=== PATIENT | male | born 1975 | race Two or more races ===

== ENCOUNTER 2018-04-21 19:05 | Emergency (ER) | payer SELFPAY ==
[~2018-04-21] VITALS: Ht 175.3 cm; Wt 95.3 kg
--- NOTE | 2018-04-21 19:05 | NUR ---
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 A/OX4 ABLE TO MAKE NEEDS KNOWN WITH FAMILY AT BEDSIDE. WILL CONTINUE TO MONITOR FOR ANY CHANGES DURING THE SHIFT.
[2018-04-21] MEDS ORDERED: LABETALOL HCL IV 100MG VIAL ONE (20:14)
[2018-04-21 20:24] LABS: BASOPHILS # (AUTO) 0.1 /CMM (0.0-0.2); BASOPHILS % (AUTO) 0.5 % (0.0-2.0); EOSINOPHILS % (AUTO) 1.5 % (0.0-6.0); HEMATOCRIT 42 % (39-51); HEMOGLOBIN 14.3 g/dL (13.5-17.5); LYMPHOCYTES # (AUTO) 3.5 /CMM (0.8-4.8); LYMPHOCYTES % (AUTO) 29.9 % (20.0-44.0); MEAN CORPUSCULAR HEMOGLOBIN 28 PG (26.0-33.0); MEAN CORPUSCULAR HGB CONC 34 g/dl (31.0-36.0); MEAN CORPUSCULAR VOLUME 82 fL (80-96); MONOCYTES # (AUTO) 0.8 /CMM (0.1-1.30); NEUTROPHILS % (AUTO) 61.1 % (43.0-81.0); PLATELET COUNT (AUTO) 272 /CMM (150-450); RDW COEFFICIENT OF VARIATION 13.1 (11.5-15.0); RED BLOOD CELL COUNT(AUTO) 5.17 MIL/uL (4.5-6.0); WHITE BLOOD COUNT (AUTO) 11.6 K/uL (4.3-11.0)
[2018-04-21] MEDS ORDERED: LABETALOL HCL IV 100MG VIAL IV ONE ×2 (20:30→21:30)
[2018-04-21 20:35] LABS: CALCIUM, SERUM 9.5 mg/dL (8.5-10.1); CARBON DIOXIDE 26 mmol/L (21-32); CHLORIDE 101 mmol/L (98-107); GLUCOSE 236 mg/dL (74-106); SODIUM SERUM 135 mmol/L (136-145); UREA NITROGEN, BLOOD 14 mg/dL (7-18)
[2018-04-21 20:39] LABS: INR 0.98 (0.85-1.15)
[2018-04-21 20:43] LABS: TROPONIN I < 0.017 ng/mL (0.00-0.056)
[2018-04-21] MEDS ORDERED: LISINOPRIL (10MG) 10 MG TABLET PO SCH (21:30)
[2018-04-21 21:37] VITALS: BP 168/100
== END 2018-04-21 21:38 | disposition home or self-care (01) ==
LOC: ER 19:08
DX: I10 Essential (primary) hypertension (principal); R04.2 Hemoptysis; E11.9 Type 2 diabetes mellitus without complications; F17.200 Nicotine dependence, unspecified, uncomplicated
CPT/HCPCS: 36415; 71045-TC; 80048-TC; 84484-TC; 85025-TC; 85730-TC; A4606; J3490; Z7610